=== PATIENT | female | born 1955 ===

== ENCOUNTER 2019-06-09 07:59 | Outpatient (CLI) | payer OTHER ==
[2019-06-13] MEDS ORDERED: XALATAN (09:52)
[2019-06-13] MEDS ORDERED: PREVACID30 MG PO (09:52)
[2019-06-13] MEDS ORDERED: CALTRATE GUMMY1 EACH PO (09:52)
[2019-06-13] MEDS ORDERED: FISH OIL CONC1000 MG PO (09:53)
== END 2019-06-09 15:00 | disposition home or self-care (01) ==
LOC: LAB 07:59
DX: D68.8 Other specified coagulation defects (principal)

== ENCOUNTER 2019-06-16 06:20 | Day surgery (SDC) | payer OTHER ==
[~2019-06-16 06:20] MED LIST: CALTRATE GUMMY1 EACH PO; FISH OIL CONC1000 MG PO; PREVACID30 MG PO; XALATAN
[2019-06-16] MEDS ORDERED: FLAGYL500MG PO (14:03)
[2019-06-16] MEDS ORDERED: DERMOPLAST PAIN78 GM MD (14:06)
== END 2019-06-16 17:20 | disposition home or self-care (01) ==
LOC: CIR.AMB 06:20
DX: N84.0 Polyp of corpus uteri (principal)